=== PATIENT | female | born 1940 | race Caucasian/White ===

== ENCOUNTER 2017-11-13 19:24 | Emergency (ER) | payer OTHER ==
[~2017-11-13] VITALS: Ht 157.5 cm; Wt 77.1 kg
[~2017-11-13 19:24] MED LIST: ALPR0.5T96 PO; CLON0.5T4 PO; DOCU-144 PO; FURO-150 PO; HYDR-1189 PO; LEVO1CAP11 PO; LISI40TA4 PO; MELO15TA13 PO; METO2.5T6 PO; OMEP20CA10 PO
[2017-11-13 19:29] VITALS: BP_SYST 203
[2017-11-13] MEDS ORDERED: NACL 0.9% 1,000 ML IV ONE (20:16)
[2017-11-13] MEDS ORDERED: methylPREDNISolone SOD SUCC/PF 62.5 MG/ML VIAL IVP ONE (20:30)
[2017-11-13] MEDS ORDERED: DIPHENHYDRAMINE INJ 50 MG/ML VIAL IVP ONE (20:30)
[2017-11-13] MEDS ORDERED: FAMOTIDINE PF 20 MG/2 ML VIAL IVP ONE (20:30)
[2017-11-13 20:37] LABS: BASOPHILS # (AUTO) 0.1 K/uL (0.0-0.2); BASOPHILS % (AUTO) 1.1 % (0.0-2.0); EOSINOPHILS # (AUTO) 0.1 K/uL (0.0-0.4); EOSINOPHILS % (AUTO) 1.8 % (0.0-4.0); HEMOGLOBIN 13.1 g/dL (12.0-16.0); LYMPHOCYTES # (AUTO) 1.9 K/uL (1.0-5.5); LYMPHOCYTES % (AUTO) 23.8 % (20.5-51.5); MEAN CORPUSCULAR HEMOGLOBIN 30 pg (27-31); MEAN CORPUSCULAR HGB CONC 34 % (32-36); MEAN CORPUSCULAR VOLUME 88 fL (79.0-98.0); MONOCYTES # (AUTO) 0.8 K/uL (0.0-1.0); MONOCYTES % (AUTO) 10.3 % (1.7-9.3); NEUTROPHILS # (AUTO) 4.9 K/uL (1.8-7.7); PLATELET COUNT (AUTO) 352 K/uL (130-430); RED BLOOD CELL COUNT(AUTO) 4.44 MIL/uL (4.2-6.2); RED CELL DISTRIBUTION WIDTH 12.4 % (9.0-15.0); WHITE BLOOD COUNT (AUTO) 7.8 K/uL (4.8-10.8)
[2017-11-13 20:46] LABS: ANION GAP 6 (5-15); CHLORIDE 103 mmol/L (98-107); CREATININE 0.67 mg/dL (0.55-1.30); GLUCOSE 87 mg/dL (70-99); POTASSIUM 3.7 mmol/L (3.5-5.1); SODIUM SERUM 137 mmol/L (136-145); UREA NITROGEN, BLOOD 23 mg/dL (8-21)
[2017-11-13 20:52] LABS: ALANINE AMINOTRANSFERASE 27 U/L (12-78); ALBUMIN 3.7 g/dL (3.4-4.8); ASPARTATE AMINOTRANSFERASE 22 U/L (10-37); TOTAL BILIRUBIN 0.2 mg/dL (0.0-1.0)
[2017-11-13 21:40] LABS: BILIRUBIN,URINE NEGATIVE (NEGATIVE); BLOOD, URINE NEGATIVE (NEGATIVE); CLARITY/URINE CLEAR (CLEAR); COLOR,URINE YELLOW (YELLOW); GLUCOSE,URINE NEGATIVE (NEGATIVE); KETONES,URINE NEGATIVE (NEGATIVE); LEUKOCYTE ESTERASE ,URINE NEGATIVE (NEGATIVE); NITRITE, URINE NEGATIVE (NEGATIVE); PROTEIN URINE NEGATIVE (NEGATIVE); UROBILINOGEN,URINE 0.2 (0.2-1.0)
[2017-11-13] MEDS ORDERED: LISINOPRIL 10 MG TABLET (PRINIVIL) PO ONE (22:45)
[2017-11-13 23:33] VITALS: BP_SYST 182
== END 2017-11-13 23:33 | disposition home or self-care (01) ==
LOC: SED 19:24
DX: L25.8 Unspecified contact dermatitis due to other agents (principal); T36.8X5A Adverse effect of other systemic antibiotics, initial encounter; L03.115 Cellulitis of right lower limb; I10 Essential (primary) hypertension; Z88.0 Allergy status to penicillin; Z88.5 Allergy status to narcotic agent; Z79.899 Other long term (current) drug therapy; Y92.89 Other specified places as the place of occurrence of the external cause
CPT/HCPCS: 36415; 80053; 81003; 85025; 96361; 96374; 96375; 99284; J1200; J2930; J3490; J7030

== ENCOUNTER 2017-11-26 13:08 | Outpatient (CLI) | payer OTHER | END 2017-11-26 20:23 | disposition home or self-care (01) | LOC: SMA 13:08 | PROVIDERS: ATTEND Family Medicine | DX: N64.89 Other specified disorders of breast (principal); R92.1 Mammographic calcification found on diagnostic imaging of breast | CPT/HCPCS: 76641; 77066 ==

== ENCOUNTER 2018-11-06 10:07 | Outpatient (CLI) | payer OTHER ==
[~2018-11-06 10:07] MED LIST changes: +ALPR0.5T PO; -ALPR0.5T96 PO; +CLON0.5T12 PO; -CLON0.5T4 PO
== END 2018-11-06 20:58 | disposition home or self-care (01) ==
LOC: SMA 10:07
PROVIDERS: ATTEND Family Medicine
DX: N60.01 Solitary cyst of right breast (principal)
CPT/HCPCS: 76641; 77066

== ENCOUNTER 2023-07-02 11:55 | Inpatient (IN) | payer OTHER ==
[~2023-07-02] VITALS: Ht 154.9 cm; Wt 72.6 kg
[~2023-07-02 11:55] MED LIST changes: -CLON0.5T12 PO; +CLON0.5T4 PO; -HYDR-1189 PO; +HYDR-3919 PO; +LISI40TA13 PO; -LISI40TA4 PO; -OMEP20CA10 PO; +OMEP20CA15 PO
[2023-07-02 11:57] VITALS: BP_SYST 131; PULSE 96; RESP 18; TEMP 98.3; O2SAT 100
[2023-07-02] MEDS ORDERED: MORPHINE 4 MG INJ. 4 MG/ML VIAL IM ONE (14:15)
[2023-07-02] MEDS ORDERED: HYDROcodone/ACETAMIN 5-325 MG TAB (NORCO/ VICODIN) PO ONE (15:30)
[2023-07-02] MEDS ORDERED: OMEP20CA15 PO (15:44)
[2023-07-02] MEDS ORDERED: METO25TA6 PO (15:52)
[2023-07-02 16:28] LABS: RED CELL DISTRIBUTION WIDTH 13.3 % (9.0-15.0); WHITE BLOOD COUNT (AUTO) 8.3 K/uL (4.8-10.8)
[2023-07-02 16:41] LABS: BASOPHILS % (AUTO) 0.3 % (0.0-2.0); EOSINOPHILS # (AUTO) 0.1 K/uL (0.0-0.4); EOSINOPHILS % (AUTO) 0.6 % (0.0-4.0); HEMATOCRIT 37.9 % (36-48); HEMOGLOBIN 12.5 g/dL (12.0-16.0); LYMPHOCYTES # (AUTO) 1.4 K/uL (1.0-5.5); LYMPHOCYTES % (AUTO) 17.1 % (20.5-51.5); MEAN CORPUSCULAR HEMOGLOBIN 29 pg (27-31); MEAN CORPUSCULAR HGB CONC 33 % (32-36); MEAN CORPUSCULAR VOLUME 87 fL (79.0-98.0); MONOCYTES # (AUTO) 0.7 K/uL (0.0-1.0); MONOCYTES % (AUTO) 8.7 % (1.7-9.3); NEUTROPHILS # (AUTO) 6.1 K/uL (1.8-7.7); NEUTROPHILS % (AUTO) 73.3 % (40.0-70.0); PLATELET COUNT (AUTO) 304 K/uL (130-430); RED BLOOD CELL COUNT(AUTO) 4.38 MIL/uL (4.2-6.2)
[2023-07-02 16:50] LABS: ANION GAP 7 (5-15); CALCIUM 9.6 mg/dL (8.4-11.0); CARBON DIOXIDE 28 mmol/L (23-29); CHLORIDE 105 mmol/L (98-107); CREATININE 0.82 mg/dL (0.55-1.30); GLUCOSE 91 mg/dL (74-106); POTASSIUM 3.8 mmol/L (3.5-5.1); SODIUM SERUM 140 mmol/L (136-145); UREA NITROGEN, BLOOD 19 mg/dL (8-21)
[2023-07-02 16:54] LABS: ALANINE AMINOTRANSFERASE 19 U/L (12-78); ALBUMIN 3.3 g/dL (3.4-4.8); ASPARTATE AMINOTRANSFERASE 17 U/L (10-37); TOTAL BILIRUBIN 0.4 mg/dL (0.0-1.0); TOTAL PROTEIN, SERUM 7.2 g/dL (6.4-8.3)
[2023-07-02] MEDS: traMADol HCL HCL 50 MG TABLET (ULTRAM) PO SCH (18:00)
[2023-07-02 20:37] VITALS: BP_SYST 161; PULSE 81; RESP 18; TEMP 98.1
[2023-07-03] VITALS (9 sets, daily range): BP systolic 139–193; PULSE 59–91; RESP 16–18; TEMP 96.7–98.5; O2SAT 92–98
[2023-07-03] MEDS: traMADol HCL HCL 50 MG TABLET (ULTRAM) PO SCH ×5 (00:30→18:39)
[2023-07-03] MEDS ORDERED: lisinopriL 20 MG TABLET PO ONE (09:30)
[2023-07-03] MEDS ORDERED: METOPROLOL TARTRATE 50 MG TABLET PO ONE ×2 (11:45→18:45)
[2023-07-03] MEDS ORDERED: METOPROLOL TARTRATE 50 MG TABLET ONE (18:38)
[2023-07-03] MEDS ORDERED: cloNIDine HCL 0.1 MG TABLET PO ONE (20:00)
[2023-07-03] MEDS: NIFEdipine 30 MG TAB.ER.24 PO SCH (22:34)
[2023-07-04] VITALS (9 sets, daily range): BP systolic 116–160; PULSE 53–73; RESP 16; TEMP 97.4–97.8; O2SAT 91–97
[2023-07-04] MEDS: traMADol HCL HCL 50 MG TABLET (ULTRAM) PO SCH ×4 (06:19→20:20)
[2023-07-04] MEDS ORDERED: lisinopriL 20 MG TABLET PO SCH (09:00)
[2023-07-04] MEDS ORDERED: METOPROLOL TARTRATE 50 MG TABLET PO SCH (09:00)
[2023-07-04] MEDS ORDERED: LORazepam 1 MG TABLET PO ONE (17:30)
[2023-07-04] MEDS: NIFEdipine 30 MG TAB.ER.24 PO SCH (17:40)
== END 2023-07-04 22:10 | DRG 536 ==
LOC: SED 11:55 → SMU 17:33
PROVIDERS: ADMIT Specialist; ATTEND Specialist
PROC: 0QS2XZZ Reposition Right Pelvic Bone, External Approach (ICD-10-PCS; principal; 2023-07-02)
DX: S32.511A Fracture of superior rim of right pubis, initial encounter for closed fracture (principal); W01.0XXA Fall on same level from slipping, tripping and stumbling without subsequent striking against object, initial encounter; Z88.5 Allergy status to narcotic agent; Z88.0 Allergy status to penicillin; Z79.899 Other long term (current) drug therapy; Y93.89 Activity, other specified; Y92.89 Other specified places as the place of occurrence of the external cause; Y99.8 Other external cause status; S32.591A Other specified fracture of right pubis, initial encounter for closed fracture
CPT/HCPCS: 36415; 70450-TC; 71045; 72125-TC; 72170-TC; 72192-TC; 73560-TC; 76376; 80053; 85025; 93005; 97116-GP; 97530-GP; 99285; J2270